=== PATIENT | female | born 1975 | race Caucasian/White ===

== ENCOUNTER 2023-06-29 10:21 | Emergency (ER) | payer MEDICAID, SELFPAY ==
[2023-06-29 10:28] VITALS: BP 153/60; PULSE 112; RESP 20; O2SAT 100; BMI 20.6
[2023-06-29] MEDS: glucagon HCL 1 MG VIAL IM (10:28)
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
[2023-06-29] MEDS: Nitroglycerin 0.4 MG TAB.SUBL SUBLINGUAL (10:33)
[2023-06-29] MEDS: 0.9 % Sodium Chloride 1,000 ML 999 ML IV (10:36)
--- NOTE | 2023-06-29 10:36 | PC.NURSE ---
Pt brought back by cabinetmaker maintenance for patient who reported that she was choking on a piece of steak, pt actively vomiting, pt able to verbally respond to questions, airway noted by MD kilpatrick/ tosha scope. Pt given IM glucagon per order, pt not tolerating PO intake of nitro without vomiting. Pt at bedside.
[2023-06-29 10:38] LABS: MANUAL DIFF FLAG NO
[2023-06-29 10:41] LABS: Basophils Percent Auto 0.2 % (0-2); Eosinophils Absolute Auto 0.1 X10*3/uL (0.0-0.4); Eosinophils Percent Auto 1.2 % (0-4); Hematocrit 34.2 % (37.0-47.0); Hemoglobin 10.2 g/dl (12.0-16.0); Imm Gran Abs Auto 0.03 X10*3/uL (0.00-0.03); Imm Gran Pct Auto 0.3 % (0.0-0.4); Lymphocytes Absolute Auto 2.7 X10*3/uL (1.2-4.9); Lymphocytes Percent Auto 25.1 % (20-40); Mean Corpuscular HGB Conc 29.8 g/dl (31.0-35.0); Mean Corpuscular Hemoglobin 20.9 pg (27.0-33.0); Mean Corpuscular Volume 69.9 fL (80.0-98.0); Mean Platelet Volume 9.6 fL (9.4-12.3); Monocytes Absolute Auto 0.6 X10*3/uL (0.1-1.2); Monocytes Percent Auto 5.1 % (2-11); Neutrophils Absolute Auto 7.4 x10*3/uL (2.0-8.3); Neutrophils Percent Auto 68.1 % (45-73); Platelet Count 215 X10*3/uL (160-400); Red Blood Count 4.89 X10*6/uL (4.20-5.50); Red Cell Distribution Width 18.2 % (11.0-16.0); White Blood Count 10.8 X10*3/uL (4.8-10.8)
[2023-06-29 10:47] LABS: Prothrombin Time 11.6 SEC (11.1-13.3)
[2023-06-29 10:52] LABS: Anion Gap 14 (12-20); Blood Urea Nitrogen 10 mg/dL (9-16); Calcium 9.6 mg/dL (8.4-10.2); Carbon Dioxide 26 mmol/L (22-29); Chloride 105 mmol/L (96-108); Creatinine Clr Calc Pharmacy 83.6; Estimated Glomerular Filt Rate > 60; Glucose Random 116 mg/dL (60-115); Potassium 3.8 mmol/L (3.3-5.1); Sodium 141 mmol/L (135-145)
[2023-06-29] MEDS: ondansetron HCL 4 MG/2 ML VIAL IVPUSH (10:53)
[2023-06-29 10:55] VITALS: BP 128/93; PULSE 83; RESP 16; O2SAT 100
--- NOTE | 2023-06-29 11:12 | PC.NURSE ---
Pt seen pushing her way out of ED exit door. This RN approached pt and asked if she would allow this RN to properly discharge her. Pt stated No, I have to be at work . This RN asked pt to allow assessment of IV for removal. This RN assessed IV was removed and site not bleeding. Provider notified.
== END 2023-06-29 11:21 | disposition home or self-care (01) ==
PROVIDERS: Emergency Provider Emergency Medicine
DX: R09.A2 Foreign body sensation, throat (principal); R13.10 Dysphagia, unspecified; Z79.899 Other long term (current) drug therapy
CPT/HCPCS: 36415; 80048; 85025; 85610; 96361; 96372; 96374; 99284; 99285; J1610; J2405

== ENCOUNTER 2024-07-10 14:37 | Inpatient (IN) | payer MEDICAID, SELFPAY ==
--- NOTE | ~2024-07-10 | MR_ITS ---
EXAMINATION: MR BRAIN WITHOUT CONTRAST CLINICAL INFORMATION: New onset of seizures. COMPARISON: No priors MRI brain. Correlated to CT brain dated July 10, 2024. TECHNIQUE: MRI of the brain was obtained using routine sequences without contrast. FINDINGS: Limited by patient's motion artifact. No restricted diffusion. No signal abnormality or volume loss in the hippocampi. No acute intracranial hemorrhage, mass effect, midline shift, hydrocephalus or herniation. Cruz-white matter differentiation is normal. Flow-void signal within the main cerebral vessels is normal. Nonspecific hyperintense T2 FLAIR signal deep white matter left frontal lobe. Sellar/suprasellar region is normal. There is a superior convex morphology of the pituitary gland which measures no more than 8 mm in maximum cranial caudal dimension. Craniocervical junction is intact and normal. Posterior cranial fossa contents demonstrated no gross signal abnormality or gross masses. MR/MR head/brain wo con IMPRESSION: No acute or structural brain abnormality. Nonspecific, punctate, T2 FLAIR signal, cruz-white matter left frontal lobe. Electronically signed by: Tim Jacobsen MD 07/11/2024 03:39 PM EST
--- NOTE | ~2024-07-10 | CT_ITS ---
EXAMINATION: CT HEAD WITHOUT CONTRAST CLINICAL INFORMATION: Change in mental status. COMPARISON: None available. TECHNIQUE: Contiguous axial imaging was performed from the skull base to vertex without intravenous administration of contrast. This CT examination was performed using dose optimization techniques as appropriate, variously including the following: *Automated exposure control. *Adjustment of mA and/or kV according to patient size (this includes techniques or standardized protocols for targeted exams where dose is matched to indication/reason for exam; i.e. extremities or head). *Use of iterative reconstruction technique. DLP: 799 mGy-cm FINDINGS: There is no evidence of acute intracranial hemorrhage or edematous territorial infarction. Cruz-white matter differentiation is preserved. There is no abnormal attenuation within the brain parenchyma. The ventricles are normal in morphology and size. No evidence for obstructive hydrocephalus. No abnormal mass effect or midline shift. No extra-axial fluid collections. No acute soft tissue or osseous abnormalities. Mild mucosal thickening of the paranasal sinuses. The mastoid air cells and middle ear cavities are clear. CT/CT head/brain wo IV con IMPRESSION: No evidence of acute intracranial hemorrhage or edematous territorial infarction. Electronically signed by: Neftaly Rodriguez DO 07/10/2024 06:06 PM SARY
--- NOTE | ~2024-07-10 | XR_ITS ---
EXAMINATION: XR CHEST CLINICAL INFORMATION: Possible OD, possible aspiration pneumonia COMPARISON: None available. TECHNIQUE: Frontal view of the chest was obtained. FINDINGS: No significant abnormality is noted involving the heart, lungs, mediastinum, bony thorax or soft tissues. XR/XR chest 1V IMPRESSION: No active disease. Electronically signed by: Geovani Cooper MD 07/10/2024 03:59 PM [facility]
[2024-07-10 14:41] VITALS: BP 112/70; PULSE 114; RESP 28; TEMP 36.9; O2SAT 100; BMI 20.5
--- NOTE | 2024-07-10 14:59 | ECG_ITS ---
Test Reason : POSSIBLE OD Blood Pressure : / mmHG Vent. Rate : 109 BPM Atrial Rate : 109 BPM P-R Int : 150 ms QRS Dur : 094 ms QT Int : 354 ms P-R-T Axes : 078 069 050 degrees QTc Int : 476 ms Sinus tachycardia Biatrial enlargement Minimal voltage criteria for LVH, may be normal variant ( [place] product ) Nonspecific ST and T wave abnormality Abnormal ECG When compared with ECG of 19-APR-2007 11:52, Vent. rate has increased BY [address] no longer elevated in Lateral leads T wave inversion now evident in Anterior leads QT has lengthened Referred By: Anthony Clement Electronically Signed By:DESTINY MONTESINOS MD
--- NOTE | 2024-07-10 15:01 | ED.AMS ---
HPI - Altered Mental Status General Chief Complaint: Overdose Stated Complaint: possible OD Time Seen by Provider: 07/10/24 14:52 Source: patient, family (Significant other) and EMS Mode of arrival: EMS Limitations: altered mental status History of Present Illness ED Provider: DR. Clement HPI narrative: 48-year-old female came in for evaluation of change mental status since 14:00. History was mainly obtained from EMS and patient this morning went to a methadone clinic received her 60 mg daily methadone on her way out patient witnessed to have a seizure activity, patient became incoherent, and urinary incontinence, no tongue biting, no known history of seizure according to the significant other, there is a question of using 6 pills of gabapentin to help with withdrawal symptoms. EMS reported that patient responded to 4 mg Narcan at the field. Patient currently is incoherent, non historian. Related Data Home Medications ?Medication ?Instructions ?Recorded ?Confirmed gabapentin 300 mg capsule 300 mg PO BID 07/10/24 07/10/24 methadone 10 mg/mL oral 60 mg PO DAILY 07/11/24 07/11/24 concentrate (Methadone Intensol) Allergies Allergy/AdvReac Type Severity Reaction Status Date / Time No Known Allergies Allergy Verified 07/10/24 14:42 [No Known Allergies*] none Allergy Unknown Unknown Uncoded 07/10/24 14:42 Review of Systems Review of Systems: All other systems are reviewed and are negative Constitutional: Reports as per HPI and Reports no additional constitutional complaints Eyes: Reports as per HPI and Reports no additional eye complaints Reports system reviewed and no additional complaints, except as documented Cardiovascular: Reports as per HPI and Reports no additional cardiovascular complaints Respiratory: Reports as per HPI and Reports no additional respiratory complaints Gastrointestinal: Reports as per HPI and Reports no additional gastrointestinal complaints Genitourinary: Reports no additional female genitourinary complaints Musculoskeletal: Reports no additional musculoskeletal complaints Skin/Breast: Reports system reviewed and no additional complaints, except as docu Psychiatric: Reports no additional psychiatric complaints Endocrine: Reports no additional endocrine complaints Hematologic/Lymphatic: Reports no additional hematologic/lymphatic complaints Allergic/Immunologic: Reports no additional allergic/immunologic complaints Reports system reviewed and no additional complaints, except as documented and Reports Abnormal speech present PMFSH Past Medical History Medical History No pertinent past medical history Social History Social History Household Members: Spouse Housing: Apartment Alcohol intake: former Patient Tobacco Use Status: Current everyday Tobacco user Tobacco use type: Cigarette Cigarette Packs Per Day: 0.5 Cigarettes Per Day: 10.0 Smoked in Last 30 Days: Yes Patient Interested in Nicotine Replacement: No Patient Given Instructions on How to Stop Smoking: Yes Date Education Initiated: 07/11/24 Use of substances other than those prescribed or required for medical reasons: Yes Substance Use Type: Heroin Substance Use Frequency: Daily Last Used Substance: Just Prior to Admission Last Used Substance Other:: 07/01/2024 Any prior treatment program specific to substance use: Yes (Methadone clinic) Have you been hit, kicked, punched, or otherwise hurt by someone within the past year? If so, by whom?: No Do you feel safe in your current relationship?: Yes Is there a partner from a previous relationship who is making you feel unsafe now?: No Are you made to feel afraid or neglected: No Advance Directives: No Advance Directives Information Provided: No Do you have a plan to hurt others: No Plan Recently lost weight without trying: No Nutrition Risks: Dental problems and Difficulty swallowing Patient : No : No Poor oral hygiene: No Physical Exam ED Vital Signs: Vital Signs - 24 hr 07/10/24 14:41 07/10/24 17:04 07/10/24 18:00 Temperature 98.4 F 98.4 F Pulse Rate 114 H 88 71 Respiratory Rate 28 H 14 18 Blood Pressure 112/70 126/69 116/64 Pulse Oximetry 100 100 98 Oxygen Delivery Method Room Air Room Air Room Air BMI result Body Mass Index 20.5 Vital signs have been reviewed and appear to be correct. Blood pressure elevated. Heart rate normal. Respiratory rate normal. Temperature normal. Oxygen saturation normal. Appearance: Disoriented, incoherent, No acute distress. Head: Normal external exam. Normocephalic. Atraumatic. No Wheatley signs noted. No raccoon eyes noted Eyes: PERRLA. EOMI. Conjunctiva and sclera normal. Eyelids normal. ENT: TM's Normal. Pharynx normal. Uvula midline. Moist mucous membranes. No trismus noted. No drooling noted. No muffled voice noted. Neck: Normal inspection. Neck supple. FROM. No adenopathy. Thyroid Normal. No meningeal signs. No neck mass noted. CVS: Normal heart rate and rhythm. Heart sound normal. No murmurs noted. Pulses normal throughout. Respiratory: No respiratory distress. Painless inspiration. Breath sounds normal. No wheezes/rales/rhonchi noted. Chest nontender. No accessory muscle usage noted or decreased air movement noted. Abdomen: Soft and nontender. Bowel sounds normal in all 4 quadrants. No distention noted. No organomegaly noted. No visible injury noted. Back: No CVA tenderness. Full range of motion noted. Skin: Skin warm and dry. Normal skin color. Normal skin turgor. No rashes/lesions/lacerations noted. Extremities: No lower extremity edema. Extremities exhibit normal range of motion. Extremities nontender. Neuro: Cranial nerve exam: II-XII are grossly intact No motor deficit. No sensory deficit. Reflexes normal. Course Reevaluation(s) Reevaluation #1: Unable to obtain head CT because patient is incooperative after administration of 2 mg of Ativan, will consider ketamine for short sedation and get the CT scan. Time: 16:40 Medications Administered Generic Name Dose Route Start Last Admin Trade Name Freq PRN Reason Stop Dose Admin Enoxaparin Sodium 40 mg 07/11/24 09:00 07/11/24 10:42 Enoxaparin Sodium 40 Mg/0.4 Ml Syringe SUBCUT Not Given Q24H SOWMYA Levetiracetam 1,000 mg in 100 mls @ 400 mls/hr 07/11/24 09:00 07/11/24 11:10 Keppra IV Infused Q12H SOWMYA Infusion Sodium Chloride 3 ml 07/11/24 00:00 07/11/24 07:37 0.9 % Sodium Chloride Flush 3 Ml Syringe IVFLUSH Not Given QSHIFT SOWMYA Discontinued Medications Generic Name Dose Route Start Last Admin Trade Name Freq PRN Reason Stop Dose Admin Sodium Chloride 1,000 mls @ 999 mls/hr 07/10/24 14:59 07/10/24 16:22 Ns IV 07/10/24 15:59 Infused .Q1H1M ONE Infusion Levetiracetam 1,000 mg in 100 mls @ 400 mls/hr 07/10/24 19:42 07/11/24 01:40 Keppra IV 07/10/24 19:56 Infused ONCE ONE Infusion Ketamine HCl 52.4 mg 07/10/24 16:39 07/10/24 16:51 Ketamine Hcl/Ns 50 Mg/5 Ml Syringe 1 mg/kg (52.4 mg) 07/10/24 16:40 52.4 mg IVPUSH Administration ONCE ONE Lorazepam 2 mg 07/10/24 15:53 07/10/24 16:15 Lorazepam 2 Mg/Ml Vial IVPUSH 07/10/24 15:54 2 mg ONCE ONE Administration Medical Decision Making Differential Diagnosis Differential Diagnoses: The differential diagnosis associated with the presentation includes (New Onset seizure, postictal status, electrolyte derangement, substance abuse, metabolic encephalopathy, severe anemia,) Admission/Observation Consideration of admission/observation: Escalation of care including admission/observation considered Consult Healthcare Provider Management of the patient was discussed with: Hospitalist Lab Data MDM Lab Attestation statement: I reviewed the patient's lab results. 07/11/24 04:45 07/11/24 04:45 Labs: Lab Results 07/10/24 07/10/24 07/10/24 Range/Units 15:11 15:12 15:13 WBC 9.1 (4.8-10.8) X10*3/uL RBC 4.36 (4.20-5.50) X10*6/uL Hgb 10.0 L (12.0-16.0) g/dl Hct 32.4 L (37.0-47.0) % MCV 74.3 L (80.0-98.0) fL MCH 22.9 L (27.0-33.0) pg MCHC 30.9 L (31.0-35.0) g/dl RDW 17.2 H (11.0-16.0) % Plt Count 226 (160-400) X10*3/uL MPV 10.4 (9.4-12.3) fL Immature Gran % (Auto) 0.3 (0.0-0.4) % Neut % (Auto) 58.9 (45-73) % Lymph % (Auto) 33.8 (20-40) % [place] % (Auto) 4.9 (2-11) % Eos % (Auto) 1.9 (0-4) % Baso % (Auto) 0.2 (0-2) % Lymph # (Auto) 3.1 (1.2-4.9) X10*3/uL [place] # (Auto) 0.4 (0.1-1.2) X10*3/uL Eos # (Auto) 0.2 (0.0-0.4) X10*3/uL Baso # (Auto) 0.0 (0.0-0.2) X10*3/uL Abs Immat Gran (auto) 0.03 (0.00-0.03) X10*3/uL Absolute Neuts (auto) 5.3 (2.0-8.3) x10*3/uL Absolute Nucleated RBC 0.000 (0.0-0.012) X10*3/uL Nucleated RBC % (auto) 0.0 (0.0-0.2) /100WBC PT 12.4 (10.9-12.4) SEC INR 1.1 (0.9-1.1) Sodium 138 (135-145) mmol/L Potassium 4.1 (3.3-5.1) mmol/L Chloride 106 (96-108) mmol/L Carbon Dioxide 21 L (22-29) mmol/L Anion Gap 15 (12-20) BUN 9 (9-16) mg/dL Creatinine 0.86 (0.5-1.4) mg/dL Estim Creat Clear Calc 67.6 Estimated GFR > 60 Random Glucose 99 (60-115) mg/dL Calcium 9.3 (8.4-10.2) mg/dL Total Bilirubin 0.2 (0.0-1.0) mg/dL Direct Bilirubin < 0.2 (0.0-0.5) mg/dL AST 26 (5-31) U/L ALT 11 (0-31) U/L Alkaline Phosphatase 62 (39-117) U/L Troponin I High Sens < 2.7 (<3.5-17.0) ng/L B-Natriuretic Peptide 45 (<100) pg/mL Total Protein 7.3 (6.5-8.0) g/dL Albumin 4.3 (3.5-5.0) g/dL Lipase 14 (8-78) U/L Urine Color Urine Appearance Urine pH (5.0-9.0) Ur Specific [place] (1.005-1.025) Urine Protein (Neg-Trace) mg/dL Urine Glucose (UA) (Negative) mg/dL Urine Ketones (Negative) mg/dL Urine Blood (Negative) Urine Nitrite (Negative) Ur Leukocyte Esterase (Negative) Urine RBC (0-2) /HPF Urine WBC (0-5) /HPF Ur Squamous Epith Cells (0-2) /HPF Urine Bacteria (None Seen) Hyaline Casts (0-2) /LPF Salicylates < 5.0 L (15-30) mg/dL Urine Opiates Screen (Not Detect) Ur Buprenorphine Scrn (Not Detect) ng/mL Ur Oxycodone Screen (Not Detect) ng/mL Urine Methadone Screen (Not Detect) ng/mL Urine Fentanyl Screen (Not Detect) Acetaminophen < 3 (<30) mcg/mL Ur Barbiturates Screen (Not Detect) Ur Phencyclidine Scrn (Not Detect) Ur Amphetamines Screen (Not Detect) U Benzodiazepines Scrn (Not Detect) Urine Cocaine Screen (Not Detect) U Marijuana (THC) Screen (Not Detect) Ethyl Alcohol < 10 mg/dL Influenza Type A (PCR) NEGATIVE (Negative) Influenza Type B (PCR) NEGATIVE (Negative) RSV RNA Qual (PCR) NEGATIVE (Negative) SARS-CoV-2 RNA (RT-PCR) NEGATIVE (Negative) 07/10/24 Range/Units 16:01 WBC (4.8-10.8) X10*3/uL RBC (4.20-5.50) X10*6/uL Hgb (12.0-16.0) g/dl Hct (37.0-47.0) % MCV (80.0-98.0) fL MCH (27.0-33.0) pg MCHC (31.0-35.0) g/dl RDW (11.0-16.0) % Plt Count (160-400) X10*3/uL MPV (9.4-12.3) fL Immature Gran % (Auto) (0.0-0.4) % Neut % (Auto) (45-73) % Lymph % (Auto) (20-40) % [place] % (Auto) (2-11) % Eos % (Auto) (0-4) % Baso % (Auto) (0-2) % Lymph # (Auto) (1.2-4.9) X10*3/uL [place] # (Auto) (0.1-1.2) X10*3/uL Eos # (Auto) (0.0-0.4) X10*3/uL Baso # (Auto) (0.0-0.2) X10*3/uL Abs Immat Gran (auto) (0.00-0.03) X10*3/uL Absolute Neuts (auto) (2.0-8.3) x10*3/uL Absolute Nucleated RBC (0.0-0.012) X10*3/uL Nucleated RBC % (auto) (0.0-0.2) /100WBC PT (10.9-12.4) SEC INR (0.9-1.1) Sodium (135-145) mmol/L Potassium (3.3-5.1) mmol/L Chloride (96-108) mmol/L Carbon Dioxide (22-29) mmol/L Anion Gap (12-20) BUN (9-16) mg/dL Creatinine (0.5-1.4) mg/dL Estim Creat Clear Calc Estimated GFR Random Glucose (60-115) mg/dL Calcium (8.4-10.2) mg/dL Total Bilirubin (0.0-1.0) mg/dL Direct Bilirubin (0.0-0.5) mg/dL AST (5-31) U/L ALT (0-31) U/L Alkaline Phosphatase (39-117) U/L Troponin I High Sens (<3.5-17.0) ng/L B-Natriuretic Peptide (<100) pg/mL Total Protein (6.5-8.0) g/dL Albumin (3.5-5.0) g/dL Lipase (8-78) U/L Urine Color Yellow Urine Appearance Clear Urine pH 7.5 (5.0-9.0) Ur Specific [place] 1.010 (1.005-1.025) Urine Protein Negative (Neg-Trace) mg/dL Urine Glucose (UA) Negative (Negative) mg/dL Urine Ketones Negative (Negative) mg/dL Urine Blood Negative (Negative) Urine Nitrite Negative (Negative) Ur Leukocyte Esterase Moderate (2+) H (Negative) Urine RBC 0-2 (0-2) /HPF Urine WBC 0-5 (0-5) /HPF Ur Squamous Epith Cells 6-10 (0-2) /HPF Urine Bacteria None Seen (None Seen) Hyaline Casts 0-2 (0-2) /LPF Salicylates (15-30) mg/dL Urine Opiates Screen Not Detected (Not Detect) Ur Buprenorphine Scrn Not Detected (Not Detect) ng/mL Ur Oxycodone Screen Not Detected (Not Detect) ng/mL Urine Methadone Screen Positive H (Not Detect) ng/mL Urine Fentanyl Screen POSITIVE H (Not Detect) Acetaminophen (<30) mcg/mL Ur Barbiturates Screen Not Detected (Not Detect) Ur Phencyclidine Scrn Not Detected (Not Detect) Ur Amphetamines Screen Not Detected (Not Detect) U Benzodiazepines Scrn Not Detected (Not Detect) Urine Cocaine Screen POSITIVE H (Not Detect) U Marijuana (THC) Screen POSITIVE H (Not Detect) Ethyl Alcohol mg/dL Influenza Type A (PCR) (Negative) Influenza Type B (PCR) (Negative) RSV RNA Qual (PCR) (Negative) SARS-CoV-2 RNA (RT-PCR) (Negative) Independent Interpretation I performed an independent interpretation of an: CT Scan (Head: No acute intracranial pathology.) Radiology Impression Discussion of test interpretation with radiology: I have reviewed the radiologist's reading. Discharge Plan Discharge Clinical Impression: Seizures, Altered mental status Patient Disposition: Admitted As Inpatient
[2024-07-10 15:03] VITALS: BP 112/70; PULSE 114; O2SAT 100
[2024-07-10] MEDS: 0.9 % Sodium Chloride 1,000 ML 999 ML IV (15:20)
[2024-07-10 15:24] LABS: MANUAL DIFF FLAG NO
[2024-07-10 15:29] LABS: Basophils Percent Auto 0.2 % (0-2); Eosinophils Absolute Auto 0.2 X10*3/uL (0.0-0.4); Eosinophils Percent Auto 1.9 % (0-4); Hematocrit 32.4 % (37.0-47.0); Imm Gran Abs Auto 0.03 X10*3/uL (0.00-0.03); Imm Gran Pct Auto 0.3 % (0.0-0.4); Lymphocytes Absolute Auto 3.1 X10*3/uL (1.2-4.9); Lymphocytes Percent Auto 33.8 % (20-40); Mean Corpuscular HGB Conc 30.9 g/dl (31.0-35.0); Mean Corpuscular Hemoglobin 22.9 pg (27.0-33.0); Mean Corpuscular Volume 74.3 fL (80.0-98.0); Mean Platelet Volume 10.4 fL (9.4-12.3); Monocytes Absolute Auto 0.4 X10*3/uL (0.1-1.2); Monocytes Percent Auto 4.9 % (2-11); Neutrophils Absolute Auto 5.3 x10*3/uL (2.0-8.3); Neutrophils Percent Auto 58.9 % (45-73); Platelet Count 226 X10*3/uL (160-400); Red Blood Count 4.36 X10*6/uL (4.20-5.50); Red Cell Distribution Width 17.2 % (11.0-16.0); White Blood Count 9.1 X10*3/uL (4.8-10.8)
[2024-07-10 15:34] LABS: INTERNATIONAL NORM RATIO 1.1 (0.9-1.1); Prothrombin Time 12.4 SEC (10.9-12.4)
[2024-07-10 15:50] LABS: B Type Natriuretic Peptide 45 pg/mL (<100)
[2024-07-10 15:58] LABS: Troponin-I High Sensitivity < 2.7 ng/L (<3.5-17.0)
[2024-07-10 15:59] LABS: Albumin Level 4.3 g/dL (3.5-5.0); Anion Gap 15 (12-20); Aspartate Amino Transferase 26 U/L (5-31); Bilirubin Direct < 0.2 mg/dL (0.0-0.5); Bilirubin Total 0.2 mg/dL (0.0-1.0); Blood Urea Nitrogen 9 mg/dL (9-16); Calcium 9.3 mg/dL (8.4-10.2); Carbon Dioxide 21 mmol/L (22-29); Chloride 106 mmol/L (96-108); Creatinine Clr Calc Pharmacy 67.6; Estimated Glomerular Filt Rate > 60; Ethanol < 10 mg/dL; Glucose Random 99 mg/dL (60-115); Lipase 14 U/L (8-78); Potassium 4.1 mmol/L (3.3-5.1); Sodium 138 mmol/L (135-145); Total Protein 7.3 g/dL (6.5-8.0)
[2024-07-10 16:09] LABS: Influenza A PCR NEGATIVE (Negative); Influenza B PCR NEGATIVE (Negative); Resp Syncy Virus RNA Qual PCR NEGATIVE (Negative); SARS COV2 PCR INHOUSE NEGATIVE (Negative)
[2024-07-10 16:15] LABS: Appearance Urine Clear; Color Urine Yellow; Glucose Urine UA Negative (Negative); Leukocyte Esterase Urine Moderate (2+) (Negative); Nitrite Urine Negative (Negative); PH 7.5 (5.0-9.0); UMIC TRIGGER UACC YES; Urine Blood Negative (Negative); Urine Ketones Negative (Negative); Urine Protein Negative (Neg-Trace)
[2024-07-10] MEDS: LORazepam 2 MG/ML VIAL IVPUSH (16:15)
[2024-07-10 16:16] LABS: Amphetamine Screen Urine Not Detected (Not Detect); Barbiturates, Urine Not Detected (Not Detect); Benzodiazepines Screen Urine Not Detected (Not Detect); Buprenorphine Scr Not Detected (Not Detect); Cannabinoid Screen Urine POSITIVE (Not Detect); Cocaine Screen Urine POSITIVE (Not Detect); Fentanyl, urine POSITIVE (Not Detect); Methadone Screen, Urine Positive (Not Detect); Opiate Screen Urine Not Detected (Not Detect); Oxycodone Screen Urine Not Detected (Not Detect); Phencyclidine Screen Urine Not Detected (Not Detect)
[2024-07-10 16:31] LABS: Acetaminophen LAB < 3 mcg/mL (<30); Alanine Aminotransferase 11 U/L (0-31); Alkaline Phosphatase 62 U/L (39-117); Salicylate < 5.0 mg/dL (15-30)
[2024-07-10 16:38] LABS: Bacteria Urine None Seen (None Seen); Hyaline Casts Urine 0-2 /LPF (0-2); RBC Urine 0-2 /HPF (0-2); UACC Culture Trigger YES; WBC Urine 0-5 /HPF (0-5)
[2024-07-10] MEDS: Ketamine HCl/NS 50 MG/5 ML SYRINGE 52.4 MG IVPUSH (16:51)
[2024-07-10 17:04] VITALS: BP 126/69; PULSE 88; RESP 14; O2SAT 100
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
[2024-07-10 18:00] VITALS: BP 116/64; PULSE 71; RESP 18; TEMP 36.9; O2SAT 98
--- NOTE | 2024-07-10 18:14 | PC.NURSE ---
1:1 remains at bedside, at bedside, patient has periods of time where she is sitting up in bed talking with patient. reports that that patient makes sense when speaking with him in welsh
--- NOTE | 2024-07-10 20:11 | PM.IMHP ---
History of Present Illness Date of Service: 07/10/24 Attending physician on admission: Giovani Vences Chief Complaint: Seizures Janis Cates is a 48 years old woman with past medical history significant for IVDU recently started on methadone (yesterday) and gabapentin accompanied by her who was at bedside after she had an event of loss of consciousness and urinary incontinence while there were riding a bus. stated that he feels that she took too many gabapentin today. He is unclear of the quantity. Last time he used heroin was last night. She also vomited and was suctioned mass. Patient also smoke tobacco approximately 10 cigarettes per day. She does not use alcohol. In the ED, he was found to have normal vital signs. CBC is essentially unremarkable except for chronic anemia obtain. There are no electrolyte imbalances. Renal function and LFTs are normal BNP is 47. Urinary showed no evidence of UTI. Head CT scan showed no acute intracranial abnormality. CXR is normal. Urine toxicology is positive for methadone, fentanyl, cocaine and marijuana, negative for opiates. ETOH level is <10. COVID-19, RSV influenza are negative. ED tx: NS 1 L bolus, Ativan 2 mg IV, ketamine 52.4 mg IV and Keppra 1 mg IV Review of Systems Review of Systems: Yes Unobtainable due to mental status PMFSH Medical History No pertinent past medical history Social History Alcohol intake: former Patient Tobacco Use Status: Tobacco use Unknown Smoked in Last 30 Days: Yes Use of substances other than those prescribed or required for medical reasons: Yes Substance Use Type: Crack/Cocaine, Heroin and Marijuana Advance Directives: No Advance Directives Information Provided: No Do you have a plan to hurt others: No Plan Meds Allergies Allergy/AdvReac Type Severity Reaction Status Date / Time No Known Allergies Allergy Verified 07/10/24 14:42 [No Known Allergies*] none Allergy Unknown Unknown Uncoded 07/10/24 14:42 Active Medications: Current Medications Acetaminophen (Acetaminophen 325 Mg Tablet) 975 mg PO Q6H PRN PRN Reason: Pain, Mild (Pain Scale 1-3), fever or headache Calcium Carbonate (Calcium Carbonate 750 Mg Tab.Chew) 750 mg PO Q4H PRN PRN Reason: Heartburn Enoxaparin Sodium (Enoxaparin Sodium 40 Mg/0.4 Ml Syringe) 40 mg SUBCUT Q24H SOWMYA Levetiracetam (Keppra) 1,000 mg in 100 mls @ 400 mls/hr IV Q12H SOWMYA Magnesium Hydroxide (Milk Of Magnesia 30 Ml Oral.Susp) 30 ml PO DAILY PRN PRN Reason: Constipation Melatonin (Melatonin 3 Mg Tablet) 6 mg PO BEDTIME PRN PRN Reason: Insomnia Sodium Chloride (0.9 % Sodium Chloride Flush 3 Ml Syringe) 3 ml IVFLUSH QSHIFT SOWMYA Physical Exam Vital Signs and Narrative: Vital Signs: Last Vital Signs Temp 98.4 F 07/10/24 18:00 Pulse 71 07/10/24 18:00 Resp 18 07/10/24 18:00 BP 116/64 07/10/24 18:00 Pulse Ox 98 07/10/24 18:00 O2 Del Method Room Air 07/10/24 18:00 BMI result Body Mass Index 20.5 Constitutional - Sleeping. Awakes upon calling her name. Afebrile. HEENT - PER, EOMI Lungs - Normal lung expansion, Normal respiratory effort, No respiratory distress, CTA bilaterally Abdomen - Nontender. Extremities - no calf tenderness bilaterally, no swelling Musculoskeletal - Normal inspection, normal ROM Skin - Warm/Dry Neurological - Sleeping. No focal weakness grossly noted. No facial droop. Normal speech. Psychological - No agitation. Results Labs 07/10/24 15:11 07/10/24 15:11 Labs: Laboratory Results - last 24 hr 07/10/24 07/10/24 07/10/24 15:11 15:12 15:13 MCV 74.3 L MCH 22.9 L MCHC 30.9 L RDW 17.2 H Plt Count 226 MPV 10.4 Immature Gran % (Auto) 0.3 Neut % (Auto) 58.9 Lymph % (Auto) 33.8 [place] % (Auto) 4.9 Eos % (Auto) 1.9 Baso % (Auto) 0.2 Lymph # (Auto) 3.1 [place] # (Auto) 0.4 Eos # (Auto) 0.2 Baso # (Auto) 0.0 Abs Immat Gran (auto) 0.03 Absolute Neuts (auto) 5.3 Absolute Nucleated RBC 0.000 Nucleated RBC % (auto) 0.0 PT 12.4 INR 1.1 Anion Gap 15 Estim Creat Clear Calc 67.6 Estimated GFR > 60 Random Glucose 99 Calcium 9.3 Total Bilirubin 0.2 Direct Bilirubin < 0.2 AST 26 ALT 11 Alkaline Phosphatase 62 Troponin I High Sens < 2.7 B-Natriuretic Peptide 45 Total Protein 7.3 Albumin 4.3 Lipase 14 Urine Color Urine Appearance Urine pH Ur Specific [place] Urine Protein Urine Glucose (UA) Urine Ketones Urine Blood Urine Nitrite Ur Leukocyte Esterase Urine RBC Urine WBC Ur Squamous Epith Cells Urine Bacteria Hyaline Casts Salicylates < 5.0 L Urine Opiates Screen Ur Buprenorphine Scrn Ur Oxycodone Screen Urine Methadone Screen Urine Fentanyl Screen Acetaminophen < 3 Ur Barbiturates Screen Ur Phencyclidine Scrn Ur Amphetamines Screen U Benzodiazepines Scrn Urine Cocaine Screen U Marijuana (THC) Screen Ethyl Alcohol < 10 Influenza Type A (PCR) NEGATIVE Influenza Type B (PCR) NEGATIVE RSV RNA Qual (PCR) NEGATIVE SARS-CoV-2 RNA (RT-PCR) NEGATIVE 07/10/24 16:01 MCV MCH MCHC RDW Plt Count MPV Immature Gran % (Auto) Neut % (Auto) Lymph % (Auto) [place] % (Auto) Eos % (Auto) Baso % (Auto) Lymph # (Auto) [place] # (Auto) Eos # (Auto) Baso # (Auto) Abs Immat Gran (auto) Absolute Neuts (auto) Absolute Nucleated RBC Nucleated RBC % (auto) PT INR Anion Gap Estim Creat Clear Calc Estimated GFR Random Glucose Calcium Total Bilirubin Direct Bilirubin AST ALT Alkaline Phosphatase Troponin I High Sens B-Natriuretic Peptide Total Protein Albumin Lipase Urine Color Yellow Urine Appearance Clear Urine pH 7.5 Ur Specific [place] 1.010 Urine Protein Negative Urine Glucose (UA) Negative Urine Ketones Negative Urine Blood Negative Urine Nitrite Negative Ur Leukocyte Esterase Moderate (2+) H Urine RBC 0-2 Urine WBC 0-5 Ur Squamous Epith Cells 6-10 Urine Bacteria None Seen Hyaline Casts 0-2 Salicylates Urine Opiates Screen Not Detected Ur Buprenorphine Scrn Not Detected Ur Oxycodone Screen Not Detected Urine Methadone Screen Positive H Urine Fentanyl Screen POSITIVE H Acetaminophen Ur Barbiturates Screen Not Detected Ur Phencyclidine Scrn Not Detected Ur Amphetamines Screen Not Detected U Benzodiazepines Scrn Not Detected Urine Cocaine Screen POSITIVE H U Marijuana (THC) Screen POSITIVE H Ethyl Alcohol Influenza Type A (PCR) Influenza Type B (PCR) RSV RNA Qual (PCR) SARS-CoV-2 RNA (RT-PCR) Imaging Radiologist's Impressions: Impressions Chest X-Ray 07/10/24 14:59 IMPRESSION: No active disease. Electronically signed by: Geovani Cooper MD 07/10/2024 03:59 PM EST RP Head CT 07/10/24 16:25 IMPRESSION: No evidence of acute intracranial hemorrhage or edematous territorial infarction. Electronically signed by: Neftaly Rodriguez DO 07/10/2024 06:06 PM EST RP Assessment and Plan (1) Seizures: Status: Acute (2) IVDU (intravenous drug user): Status: Acute Plan Janis Cates is a 48 y/o woman admitted with: Seizures, ?/2 methadone and/or gabapentin. Admit to hospitalist service. Telemetry. Seizures and aspiration precautions. Continue treatment with Keppra 1 g IV bid brain MRI. EEG. Neurology consult. DVT prophylaxis: Lovenox Code status: Full Patient will need hospitalization for at least 2 midnights for seizure evaluation and treatment with IV anticonvulsant and imaging; patient also will need evaluation by specialist. Quality Stroke Does the patient have a stroke diagnosis?: No VTE Prior VTE?: No VTE Risk Level:: Medical - moderate - high VTE Device Contraindication: Treatment Not Indicated VTE Drug Contraindication: N/A - Med Ordered
[2024-07-10 20:59] VITALS: BP 118/71; PULSE 88; RESP 12; TEMP 36.6; O2SAT 100
--- NOTE | 2024-07-10 21:43 | PHA.MEDREC ---
Addendum entered by Marquise Ng RPh 07/10/24 22:03: MED REC CHECKED BY [facility] Original Note: Pharmacy Consult ? Medication Reconciliation Pharmacy has completed the medication reconciliation. Spoke with patients and he confirmed patients medications. He confirmed the patient is getting Methadone from the Methadone clinic here in [place] and he states she is taking 60mg of it and she took it last this morning around [id number]. He also confirmed she is taking the Gabapentin 300mg tabs and confirmed it is 1 BID but states he wants to have her only take it one a day due to thinking she was taking too many of them and that is why she is here [facility]. He confirmed she took her medications this morning.
[2024-07-11] MEDS: levETIRAcetam in NaCl (iso-os) 1,000 MG/100 ML PIGGYBACK 400 MG IV ×2 (01:24→10:42)
[2024-07-11 05:08] LABS: MANUAL DIFF FLAG NO
[2024-07-11 05:09] LABS: Basophils Percent Auto 0.6 % (0-2); Eosinophils Absolute Auto 0.1 X10*3/uL (0.0-0.4); Eosinophils Percent Auto 1.9 % (0-4); Hematocrit 29.8 % (37.0-47.0); Hemoglobin 9.2 g/dl (12.0-16.0); Imm Gran Abs Auto 0.02 X10*3/uL (0.00-0.03); Imm Gran Pct Auto 0.3 % (0.0-0.4); Lymphocytes Absolute Auto 2.4 X10*3/uL (1.2-4.9); Lymphocytes Percent Auto 38.8 % (20-40); Mean Corpuscular HGB Conc 30.9 g/dl (31.0-35.0); Mean Corpuscular Volume 74.5 fL (80.0-98.0); Mean Platelet Volume 10.4 fL (9.4-12.3); Monocytes Absolute Auto 0.4 X10*3/uL (0.1-1.2); Neutrophils Absolute Auto 3.2 x10*3/uL (2.0-8.3); Neutrophils Percent Auto 52.4 % (45-73); Platelet Count 197 X10*3/uL (160-400); Red Cell Distribution Width 17.2 % (11.0-16.0); White Blood Count 6.2 X10*3/uL (4.8-10.8)
[2024-07-11 05:23] LABS: Anion Gap 10 (12-20); Blood Urea Nitrogen 7 mg/dL (9-16); Carbon Dioxide 22 mmol/L (22-29); Chloride 112 mmol/L (96-108); Creatinine Clr Calc Pharmacy 78.5; Estimated Glomerular Filt Rate > 60; Glucose Random 81 mg/dL (60-115); Sodium 140 mmol/L (135-145)
[2024-07-11 08:00] VITALS: BMI 20.5
--- NOTE | 2024-07-11 09:30 | PC.NURSE ---
Pt. down to MRI at this time. Screening form done
--- NOTE | 2024-07-11 10:18 | PC.NURSE ---
Confirmed pt.'s Methadone dose: [facility] Last dose: 07/10/24 @ 08:27 Dose: Methadone 60mg PO Verified by: ALFREDA Napoles
--- NOTE | 2024-07-11 10:40 | PC.NURSE ---
Pt. returned from MRI at this time.
--- NOTE | 2024-07-11 11:19 | HE.PHANOTE ---
METHADONE Pt receives from [facility] ([phone]). Per jermain at facility, pt last received 60mg om 07/10/24 @ 0879.
[2024-07-11 12:00] VITALS: BP 111/62; PULSE 52; RESP 12; TEMP 36.8; O2SAT 98
--- NOTE | 2024-07-11 12:25 | PC.NURSE ---
Still awaiting Methadone at this time. Simin Zacarias notified x2
--- NOTE | 2024-07-11 12:34 | MHC.CM.PN ---
Patient is here with AMS; CM spoke with @ listed #. Patient lives in an apartment with her and she is functionally independent. Patient was recently started on Methadone and set up at [facility]. Patient will benefit from a Recovery Team Consult to assist with disposition; CM has initiated and will follow for dc planning.Patient has no PCP.
[2024-07-11] MEDS: methADONE HCl 20 MG/2 ML ORAL.CONC 60 MG PO (12:40)
--- NOTE | 2024-07-11 12:49 | P.PNIM_ITS ---
Subjective Subjective Date of Service: 07/11/24 Review of Systems Follow up seizure activity feeling better but sleepy Physical Exam 2 Vital Signs: Vital Signs: Last Vital Signs Temp 97.9 F 07/10/24 20:59 Pulse 88 07/10/24 20:59 Resp 12 07/10/24 20:59 BP 118/71 07/10/24 20:59 Pulse Ox 100 07/10/24 20:59 O2 Del Method Room Air 07/10/24 20:59 BMI result Body Mass Index 20.5 Appearing in no acute distress lung sounds are clear to auscultation heart regular rate rhythm, clear S1, S2 positive bowel sounds, abdomen is soft, nontender neuro patient is alert x3, no focal deficits Objective Data Active Medications Acetaminophen (Acetaminophen 325 Mg Tablet) 975 mg PO Q6H PRN PRN Reason: Pain, Mild (Pain Scale 1-3), fever or headache Calcium Carbonate (Calcium Carbonate 750 Mg Tab.Chew) 750 mg PO Q4H PRN PRN Reason: Heartburn Enoxaparin Sodium (Enoxaparin Sodium 40 Mg/0.4 Ml Syringe) 40 mg SUBCUT Q24H [facility] Last Admin: 07/11/24 10:42 Dose: Not Given Documented By: LIZETTE Non-Admin Reason: Patient Refused Gabapentin (Gabapentin 300 Mg Capsule) 300 mg PO BID SOWMYA Levetiracetam (Keppra) 1,000 mg in 100 mls @ 400 mls/hr IV Q12H [facility] Last Infusion: 07/11/24 11:10 Dose: Infused Documented By: LIZETTE Lorazepam (Lorazepam 2 Mg/Ml Vial) 2 mg IVPUSH ONCE PRN PRN Reason: seizures Magnesium Hydroxide (Milk Of Magnesia 30 Ml Oral.Susp) 30 ml PO DAILY PRN PRN Reason: Constipation Melatonin (Melatonin 3 Mg Tablet) 6 mg PO BEDTIME PRN PRN Reason: Insomnia Methadone HCl (Methadone Hcl 20 Mg/2 Ml Oral.Conc) 60 mg PO DAILY [facility] Last Admin: 07/11/24 12:40 Dose: 60 mg Documented By: LIZETTE Co-signed By: MEJIA Sodium Chloride (0.9 % Sodium Chloride Flush 3 Ml Syringe) 3 ml IVFLUSH QSHIFT [facility] Last Admin: 07/11/24 07:37 Dose: Not Given Documented By: LIZETTE Non-Admin Reason: Previously Administered Labs 07/11/24 04:45 07/11/24 04:45 Labs: Laboratory Results - last 24 hr 07/10/24 07/10/24 07/10/24 15:11 15:12 15:13 MCV 74.3 L MCH 22.9 L MCHC 30.9 L RDW 17.2 H Plt Count 226 MPV 10.4 Immature Gran % (Auto) 0.3 Neut % (Auto) 58.9 Lymph % (Auto) 33.8 [place] % (Auto) 4.9 Eos % (Auto) 1.9 Baso % (Auto) 0.2 Lymph # (Auto) 3.1 [place] # (Auto) 0.4 Eos # (Auto) 0.2 Baso # (Auto) 0.0 Abs Immat Gran (auto) 0.03 Absolute Neuts (auto) 5.3 Absolute Nucleated RBC 0.000 Nucleated RBC % (auto) 0.0 PT 12.4 INR 1.1 Anion Gap 15 Estim Creat Clear Calc 67.6 Estimated GFR > 60 Random Glucose 99 Calcium 9.3 Total Bilirubin 0.2 Direct Bilirubin < 0.2 AST 26 ALT 11 Alkaline Phosphatase 62 Troponin I High Sens < 2.7 B-Natriuretic Peptide 45 Total Protein 7.3 Albumin 4.3 Lipase 14 Urine Color Urine Appearance Urine pH Ur Specific [place] Urine Protein Urine Glucose (UA) Urine Ketones Urine Blood Urine Nitrite Ur Leukocyte Esterase Urine RBC Urine WBC Ur Squamous Epith Cells Urine Bacteria Hyaline Casts Salicylates < 5.0 L Urine Opiates Screen Ur Buprenorphine Scrn Ur Oxycodone Screen Urine Methadone Screen Urine Fentanyl Screen Acetaminophen < 3 Ur Barbiturates Screen Ur Phencyclidine Scrn Ur Amphetamines Screen U Benzodiazepines Scrn Urine Cocaine Screen U Marijuana (THC) Screen Ethyl Alcohol < 10 Influenza Type A (PCR) NEGATIVE Influenza Type B (PCR) NEGATIVE RSV RNA Qual (PCR) NEGATIVE SARS-CoV-2 RNA (RT-PCR) NEGATIVE 07/10/24 07/11/24 16:01 04:45 MCV 74.5 L MCH 23.0 L MCHC 30.9 L RDW 17.2 H Plt Count 197 MPV 10.4 Immature Gran % (Auto) 0.3 Neut % (Auto) 52.4 Lymph % (Auto) 38.8 [place] % (Auto) 6.0 Eos % (Auto) 1.9 Baso % (Auto) 0.6 Lymph # (Auto) 2.4 [place] # (Auto) 0.4 Eos # (Auto) 0.1 Baso # (Auto) 0.0 Abs Immat Gran (auto) 0.02 Absolute Neuts (auto) 3.2 Absolute Nucleated RBC 0.000 Nucleated RBC % (auto) 0.0 PT INR Anion Gap 10 L Estim Creat Clear Calc 78.5 Estimated GFR > 60 Random Glucose 81 Calcium 9.0 Total Bilirubin Direct Bilirubin AST ALT Alkaline Phosphatase Troponin I High Sens B-Natriuretic Peptide Total Protein Albumin Lipase Urine Color Yellow Urine Appearance Clear Urine pH 7.5 Ur Specific [place] 1.010 Urine Protein Negative Urine Glucose (UA) Negative Urine Ketones Negative Urine Blood Negative Urine Nitrite Negative Ur Leukocyte Esterase Moderate (2+) H Urine RBC 0-2 Urine WBC 0-5 Ur Squamous Epith Cells 6-10 Urine Bacteria None Seen Hyaline Casts 0-2 Salicylates Urine Opiates Screen Not Detected Ur Buprenorphine Scrn Not Detected Ur Oxycodone Screen Not Detected Urine Methadone Screen Positive H Urine Fentanyl Screen POSITIVE H Acetaminophen Ur Barbiturates Screen Not Detected Ur Phencyclidine Scrn Not Detected Ur Amphetamines Screen Not Detected U Benzodiazepines Scrn Not Detected Urine Cocaine Screen POSITIVE H U Marijuana (THC) Screen POSITIVE H Ethyl Alcohol Influenza Type A (PCR) Influenza Type B (PCR) RSV RNA Qual (PCR) SARS-CoV-2 RNA (RT-PCR) Microbiology Microbiology Results: Microbiology 07/10/24 Unknown Urine Culture - Preliminary Urine clean catch Culture too young to evaluate. Assessment and Plan (1) Seizures: Status: Acute Plan Janis Cates is a 48 y/o woman admitted with seizure activity Seizures 2 episodes (one with loss of bladder function)unknown etiology, denied drug use for 3 days (positiv drug screen), started on methadone 07/09/24 Telemetry. Seizures and aspiration precautions. Continue treatment with Keppra 1 g IV bid MRI results pending EEG (07/12/24). Neurology consult. Microcytic anemia iron profile ordered Substance abuse positive drug screen addiction team consult continue methadone DVT prophylaxis: Lovenox Code status: Full Patient will need hospitalization for at least 2 midnights for seizure evaluation and treatment with IV anticonvulsant and imaging; patient also will need evaluation by specialist. Quality Stroke Does the patient have a stroke diagnosis?: No VTE Prior VTE?: No VTE Risk Level:: Medical - moderate - high VTE Device Contraindication: Treatment Not Indicated VTE Drug Contraindication: N/A - Med Ordered
--- NOTE | 2024-07-11 15:41 | P.CNNE_ITS ---
History of Present Illness Data of Consult Service Date: 07/11/24 Primary Care Provider: Unknown Physician HPI Reason for consult: seizures. Substance abuse This is a 48 years old woman with past medical history significant for IV drug use, recently started on methadone (yesterday) and gabapentin accompanied by her who was at bedside after she had an event of loss of consciousness and urinary incontinence while there were riding a bus. stated that he feels that she took too many gabapentin today. He is unclear of the quantity. Last time he used heroin was last night. She also vomited and was suctioned mass. Patient also smoke tobacco approximately 10 cigarettes per day. She does not use alcohol. In the ED, she was found to have normal vital signs. CBC is essentially unremarkable except for chronic anemia obtain. There are no electrolyte imbalances. Renal function and LFTs are normal BNP is 47. Urinary showed no evidence of UTI. Head CT scan showed no acute intracranial abnormality. MRI brain normal. Urine toxicology is positive for methadone, fentanyl, cocaine and marijuana, negative for opiates. ETOH level is <10. COVID-19, RSV influenza are negative. COUNT INCLUDES THE [facility] Past Medical History Medical History No pertinent past medical history Social History Social History Household Members: Spouse Housing: Apartment Alcohol intake: former Patient Tobacco Use Status: Current everyday Tobacco user Tobacco use type: Cigarette Cigarette Packs Per Day: 0.5 Cigarettes Per Day: 10.0 Smoked in Last 30 Days: Yes Patient Interested in Nicotine Replacement: No Patient Given Instructions on How to Stop Smoking: Yes Date Education Initiated: 07/11/24 Use of substances other than those prescribed or required for medical reasons: Yes Substance Use Type: Heroin Substance Use Frequency: Daily Last Used Substance: Just Prior to Admission Last Used Substance Other:: 07/01/2024 Any prior treatment program specific to substance use: Yes (Methadone clinic) Have you been hit, kicked, punched, or otherwise hurt by someone within the past year? If so, by whom?: No Do you feel safe in your current relationship?: Yes Is there a partner from a previous relationship who is making you feel unsafe now?: No Are you made to feel afraid or neglected: No Advance Directives: No Advance Directives Information Provided: No Do you have a plan to hurt others: No Plan Recently lost weight without trying: No Nutrition Risks: Dental problems and Difficulty swallowing Patient : No : No Poor oral hygiene: No service: No Meds Allergies Allergy/AdvReac Type Severity Reaction Status Date / Time No Known Allergies Allergy Verified 07/10/24 14:42 [No Known Allergies*] none Allergy Unknown Unknown Uncoded 07/10/24 14:42 Active Medications: Current Medications Acetaminophen (Acetaminophen 325 Mg Tablet) 975 mg PO Q6H PRN PRN Reason: Pain, Mild (Pain Scale 1-3), fever or headache Calcium Carbonate (Calcium Carbonate 750 Mg Tab.Chew) 750 mg PO Q4H PRN PRN Reason: Heartburn Enoxaparin Sodium (Enoxaparin Sodium 40 Mg/0.4 Ml Syringe) 40 mg SUBCUT Q24H [facility] Last Admin: 07/11/24 10:42 Dose: Not Given Gabapentin (Gabapentin 300 Mg Capsule) 300 mg PO BID [facility] Levetiracetam (Keppra) 1,000 mg in 100 mls @ 400 mls/hr IV Q12H [facility] Last Infusion: 07/11/24 11:10 Dose: Infused Lorazepam (Lorazepam 2 Mg/Ml Vial) 2 mg IVPUSH ONCE PRN PRN Reason: seizures Magnesium Hydroxide (Milk Of Magnesia 30 Ml Oral.Susp) 30 ml PO DAILY PRN PRN Reason: Constipation Melatonin (Melatonin 3 Mg Tablet) 6 mg PO BEDTIME PRN PRN Reason: Insomnia Methadone HCl (Methadone Hcl 20 Mg/2 Ml Oral.Conc) 60 mg PO DAILY [facility] Last Admin: 07/11/24 12:40 Dose: 60 mg Sodium Chloride (0.9 % Sodium Chloride Flush 3 Ml Syringe) 3 ml IVFLUSH QSHIFT [facility] Last Admin: 07/11/24 07:37 Dose: Not Given Home Medications ?Medication ?Instructions ?Recorded ?Confirmed ?Last Taken ?Type gabapentin 300 mg capsule 300 mg PO BID 07/10/24 07/10/24 07/10/24 History methadone 10 mg/mL oral 60 mg PO DAILY 07/11/24 07/11/24 07/10/24 08:27 History concentrate (Methadone Intensol) Physical Exam 2 Vital Signs: Vital Signs: Last Vital Signs Temp 98.2 F 07/11/24 12:00 Pulse 52 07/11/24 12:00 Resp 12 07/11/24 12:00 BP 111/62 07/11/24 12:00 Pulse Ox 98 07/11/24 12:00 O2 Del Method Room Air 07/11/24 12:00 BMI result Body Mass Index 20.5 Neuro: Other: She is back to her baseline. She was examined in the presence of her feels she is normal. She's oriented x3. Exam is entirely nonfocal. She is anxious to go home Results Labs 07/11/24 04:45 07/11/24 04:45 Labs: Short CBC 07/11/24 Range/Units 04:45 WBC 6.2 (4.8-10.8) X10*3/uL Hgb 9.2 L (12.0-16.0) g/dl Hct 29.8 L (37.0-47.0) % Plt Count 197 (160-400) X10*3/uL BMP 07/10/24 07/11/24 15:11 04:45 Sodium 138 140 Potassium 4.1 4.0 Chloride 106 112 H Carbon Dioxide 21 L 22 BUN 9 7 L Creatinine 0.86 0.74 Calcium 9.3 9.0 Liver Function 07/10/24 Range/Units 15:11 Total Bilirubin 0.2 (0.0-1.0) mg/dL Direct Bilirubin < 0.2 (0.0-0.5) mg/dL AST 26 (5-31) U/L ALT 11 (0-31) U/L Alkaline Phosphatase 62 (39-117) U/L Albumin 4.3 (3.5-5.0) g/dL Urine 07/10/24 Range/Units 16:01 Urine Color Yellow Urine Appearance Clear Urine pH 7.5 (5.0-9.0) Ur Specific [place] 1.010 (1.005-1.025) Urine Protein Negative (Neg-Trace) mg/dL Urine Glucose (UA) Negative (Negative) mg/dL Microbiology Microbiology Results: Microbiology 07/10/24 Unknown Urine clean catch Urine Culture - Preliminary Culture too young to evaluate. Assessment and Plan (1) Altered mental status: Status: Acute Possibly due to substance abuse or medication. She is now back to baseline. (2) Seizures: Status: Acute Seizure-like episode. Unclear if it was syncope related to her medications. Recommendation EEG (3) IVDU (intravenous drug user): Status: Acute Procedures Date of Service Date of Service: 07/11/24
[2024-07-11 15:53] VITALS: BP 100/50; PULSE 61; RESP 14; TEMP 36.6; O2SAT 98
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
--- NOTE | 2024-07-11 16:43 | PM.EVENT ---
Event Note Date of Service: 07/11/24 Event Note: Addiction consult placed for patient with OUD newly started on methadone Patient not in room, RN reporting pt had self directed discharge and left the hospital just before t/w arrived Time Spent With Patient Time: Total time managing care of this patient today ____ minutes.
== END 2024-07-11 17:08 | disposition left against medical advice (07) | DRG 53 ==
LOC: HO.ED 17:29 → HO.EDOVER 20:39 → HO.IMC 07-11 12:16
PROVIDERS: Admitting Provider Internal Medicine; Emergency Provider Emergency Medicine; Visit Provider Nurse Practitioner Acute Care
DX: R56.9 Unspecified convulsions (principal); D50.9 Iron deficiency anemia, unspecified; F17.210 Nicotine dependence, cigarettes, uncomplicated; F11.20 Opioid dependence, uncomplicated; Z20.822 Contact with and (suspected) exposure to COVID-19; Z71.6 Tobacco abuse counseling; Z79.899 Other long term (current) drug therapy
CPT/HCPCS: 0241U; 36415; 70450; 70551; 71045; 80048; 80076; 80143; 80179; 80307; 81001; 83690; 83880; 84484; 85025; 85610; 87086; 93005; 99285; J1953; J2060

== ENCOUNTER → 2024-07-10 14:59 | Outpatient (BNV) | payer MEDICAID, SELFPAY | PROVIDERS: Admitting Provider Internal Medicine; Emergency Provider Emergency Medicine; Visit Provider Internal Medicine Cardiovascular Disease | DX: R00.0 Tachycardia, unspecified (principal); R94.31 Abnormal electrocardiogram [ECG] [EKG]; I51.7 Cardiomegaly | CPT/HCPCS: 93010 ==

== ENCOUNTER → 2024-07-10 14:59 | Outpatient (BNV) | payer MEDICAID, SELFPAY | PROVIDERS: Emergency Provider Emergency Medicine; Visit Provider Radiology Diagnostic Radiology | DX: J69.0 Pneumonitis due to inhalation of food and vomit (principal); R56.9 Unspecified convulsions | CPT/HCPCS: 71045 ==

== ENCOUNTER → 2024-07-10 17:26 | Outpatient (BNV) | payer MEDICAID, SELFPAY | PROVIDERS: Emergency Provider Emergency Medicine; Visit Provider Internal Medicine | DX: R56.9 Unspecified convulsions (principal); F19.90 Other psychoactive substance use, unspecified, uncomplicated | CPT/HCPCS: 99222; 99232 ==

== ENCOUNTER 2024-07-10 20:37 | Outpatient (BNV) | payer MEDICAID, SELFPAY | END 2024-07-11 07:00 | PROVIDERS: Admitting Provider Internal Medicine; Emergency Provider Emergency Medicine; Visit Provider Radiology Diagnostic Radiology | DX: R56.9 Unspecified convulsions (principal) | CPT/HCPCS: 70551 ==

== ENCOUNTER → 2024-07-10 20:37 | Outpatient (BNV) | payer MEDICAID, SELFPAY | PROVIDERS: Admitting Provider Internal Medicine; Emergency Provider Emergency Medicine; Visit Provider Psychiatry & Neurology Neurology | DX: R41.82 Altered mental status, unspecified (principal); R56.9 Unspecified convulsions; F19.90 Other psychoactive substance use, unspecified, uncomplicated | CPT/HCPCS: 99222 ==